=== PATIENT | female | born 1980 | race Caucasian/White ===

== ENCOUNTER 2021-10-02 12:10 | Emergency (ER) | payer BC ==
[~2021-10-02 12:10] MED LIST: ASPIRIN EC81 MG PO; BENZONATATE200 MG PO; FLEXERIL 10 MG10 MG PO; KLOR-CON 1010 MEQ PO; NAPROSYN500 MG PO; PANTOPRAZOLE SO40 MG PO; PRILOSEC OTC20 MG PO; TESSALON PERLE100 MG PO; TOPAMAX100 MG PO; TOPAMAX50 MG PO; VITAMIN D31000 UNIT PO; Voltaren Gel 1 % TOP
== END 2021-10-02 12:59 | disposition home or self-care (01) ==
LOC: ER1 12:10
DX: R51.9 Headache, unspecified (principal); E11.9 Type 2 diabetes mellitus without complications; I25.2 Old myocardial infarction; Z86.73 Personal history of transient ischemic attack (TIA), and cerebral infarction without residual deficits; Z79.84 Long term (current) use of oral hypoglycemic drugs
CPT/HCPCS: 93005; 99284

== ENCOUNTER 2021-12-09 00:35 | Emergency (ER) | payer BC, OTHER ==
[2021-12-09 01:23] LABS: HEMOGLOBIN 15.5 gm/dl (12.3-15.3); RED BLOOD COUNT 4.65 M/UL (4.00-5.10); WHITE BLOOD COUNT 12.1 K/UL (4.5-11.0)
[2021-12-09 01:28] LABS: BUN/CREATININE RATIO 17 (0-10)
== END 2021-12-09 05:26 | disposition home or self-care (01) ==
LOC: ER1 00:35
PROVIDERS: Student in an Organized Health Care Education/Training Program
DX: S20.212A Contusion of left front wall of thorax, initial encounter (principal); W20.8XXA Other cause of strike by thrown, projected or falling object, initial encounter; Y93.52 Activity, horseback riding; Y92.009 Unspecified place in unspecified non-institutional (private) residence as the place of occurrence of the external cause
CPT/HCPCS: 71045; 71260; 80048; 85025; 96374; 96375; 96376; 99284; J1885; J2405; Q9967

== ENCOUNTER 2022-02-04 18:51 | Inpatient (IN) | payer BC ==
[~2022-02-04] VITALS: Ht 152.4 cm; Wt 74.8 kg
[2022-02-04 19:35] LABS: HEMOGLOBIN 14.8 gm/dl (12.3-15.3); RED BLOOD COUNT 4.49 M/UL (4.00-5.10)
[2022-02-04 19:59] LABS: BUN/CREATININE RATIO 26 (0-10)
[2022-02-05 04:34] LABS: HEMOGLOBIN 12.7 gm/dl (12.3-15.3); RED BLOOD COUNT 3.94 M/UL (4.00-5.10)
[2022-02-05 04:44] LABS: BUN/CREATININE RATIO 24 (0-10)
[2022-02-05 05:50] LABS: ADENOVIRUS F 40/41 Not Detected (Negative); ASTROVIRUS Not Detected (Negative); CRYPTOSPORIDIUM Not Detected (Negative); E.COLI 0157 Not Detected (Negative); ENTAMOEBA HISTOLYTICA Not Detected (Negative); ENTEROAGGREGATIVE E.COLI (EAEC Not Detected (Negative); ENTEROPATHOGENIC E.COLI (EPEC) Not Detected (Negative); ENTEROTOXIGENIC E.COLI (ETEC) Not Detected (Negative); GIARDIA LAMBLIA Not Detected (Negative); NOROVIRUS GI/GII Not Detected (Negative); PLESIOMONAS SHIGELLOIDES Not Detected (Negative); ROTOVIRUS A Not Detected (Negative); SALMONELLA Not Detected (Negative); SAPOVIRUS Not Detected (Negative); SHIG/ENTEROINVAS.ECOLI (EIEC) Not Detected (Negative); SHIGA-LIK TOX.PRO.E.COLI (STEC Not Detected (Negative); VIBRIO Not Detected (Negative); VIBRIO CHOLERAE Not Detected (Negative); YERSINIA ENTEROCOLITICA Not Detected (Negative)
[2022-02-05 08:15] LABS: CLOSTRIDIUM DIFFICILE TOX A/B Not Detected (Negative)
[2022-02-05 08:17] LABS: CAMPYLOBACTER DETECTED (Negative)
[2022-02-05] MEDS ORDERED: PRILOSEC OTC20 MG PO (09:49)
[2022-02-06 02:46] LABS: HEMOGLOBIN 11.2 gm/dl (12.3-15.3)
[2022-02-06 02:48] LABS: RED BLOOD COUNT 3.51 M/UL (4.00-5.10); WHITE BLOOD COUNT 4.4 K/UL (4.5-11.0)
[2022-02-06 03:04] LABS: BUN/CREATININE RATIO 11 (0-10)
[2022-02-07 03:22] LABS: BUN/CREATININE RATIO 11 (0-10)
[2022-02-07 03:55] LABS: HEMOGLOBIN 11.4 gm/dl (12.3-15.3); RED BLOOD COUNT 3.55 M/UL (4.00-5.10); WHITE BLOOD COUNT 4.6 K/UL (4.5-11.0)
[2022-02-08 06:41] LABS: HEMOGLOBIN 12.2 gm/dl (12.3-15.3); RED BLOOD COUNT 3.84 M/UL (4.00-5.10); WHITE BLOOD COUNT 5.4 K/UL (4.5-11.0)
[2022-02-08 07:10] LABS: BUN/CREATININE RATIO 9 (0-10)
[2022-02-08] MEDS ORDERED: BENTYL 10MG CAP10 MG PO (15:36)
[2022-02-08] MEDS ORDERED: METRONIDAZOLE500 MG PO (15:36)
[2022-02-08] MEDS ORDERED: HYDROCODON-ACE1 EAC4 PO (15:36)
[2022-02-08] MEDS ORDERED: METAMUCIL PACK3.4 GM PO (15:36)
[2022-02-08] MEDS ORDERED: PHOS-NAK PACKET1 EA PO (15:36)
[2022-02-08] MEDS ORDERED: LEVOFLOXACIN500 MG PO (15:36)
[2022-02-08] MEDS ORDERED: FLORANEX GRANU1 EACH PO (15:36)
== END 2022-02-08 17:30 | disposition home or self-care (01) | DRG 372 ==
LOC: ER1 18:51 → M/S 22:28 → CDU 22:28 → M/S 22:52
PROVIDERS: Family Medicine; Internal Medicine; ADMIT Internal Medicine
DX: A04.5 Campylobacter enteritis (principal); E87.2 Acidosis; Z20.822 Contact with and (suspected) exposure to COVID-19; E87.1 Hypo-osmolality and hyponatremia; E86.0 Dehydration; K76.0 Fatty (change of) liver, not elsewhere classified; E87.6 Hypokalemia; E11.9 Type 2 diabetes mellitus without complications; E83.39 Other disorders of phosphorus metabolism; G43.909 Migraine, unspecified, not intractable, without status migrainosus; K21.9 Gastro-esophageal reflux disease without esophagitis; Z98.891 History of uterine scar from previous surgery; Z98.51 Tubal ligation status; Z90.49 Acquired absence of other specified parts of digestive tract; Z85.3 Personal history of malignant neoplasm of breast; Z82.49 Family history of ischemic heart disease and other diseases of the circulatory system; Z83.79 Family history of other diseases of the digestive system
CPT/HCPCS: 36415; 80053; 81001; 82550; 82553; 82962; 83605; 83690; 83735; 84100; 84132; 84484; 84703; 85025; 86140; 87040; 87086; 87507; 93005; 96374; 96375; 99285; J0295; J0696; J1650; J1885; J2270; J2405; J3475; J7030; Q9967; U0002

== ENCOUNTER → 2022-03-01 | Day surgery (SDC) | payer BC ==
[~2022-03-01] MED LIST changes: +BENTYL 10MG CAP10 MG PO; +FLORANEX GRANU1 EACH PO; +HYDROCODON-ACE1 EAC4 PO; +LEVOFLOXACIN500 MG PO; +METAMUCIL PACK3.4 GM PO; +METRONIDAZOLE500 MG PO; +PHOS-NAK PACKET1 EA PO
== END | disposition home or self-care (01) ==
LOC: OR 06:41
DX: K29.50 Unspecified chronic gastritis without bleeding (principal); K31.9 Disease of stomach and duodenum, unspecified; I10 Essential (primary) hypertension; K52.9 Noninfective gastroenteritis and colitis, unspecified; Z79.899 Other long term (current) drug therapy
CPT/HCPCS: J2250; J2370; J2704